=== PATIENT | male | born 1970 | race Caucasian/White ===

== ENCOUNTER 2018-05-02 19:00 | Emergency (ER) | payer BC, OTHER ==
[2018-05-02 19:44] VITALS: BP 115/79
--- NOTE | 2018-05-02 20:30 | ED ---
Skin Complaint - HPI Summary HPI Summary: 48 yr old male with poison samantha. The patient complains of rash for four days. 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 He has the rash on his arms, legs. No rash on trunk. No other complaints. - History of Current Complaint Chief Complaint: UCSkin Time Seen by Provider: 05/02/18 20:16 Stated Complaint: SKIN COMPLAINT Pain Intensity: 8 - Allergy/Home Medications Allergies/Adverse Reactions: Allergies Allergy/AdvReac Type Severity Reaction Status Date / Time No Known Allergies Allergy Verified 05/02/18 19:37 PMH/Surg Hx/FS Hx/Imm Hx Cardiovascular History: Denies: Hx Pacemaker/ICD Sensory History: Denies: Hx Hearing Aid Psychiatric History: Denies: Hx Panic Disorder Infectious Disease History: No Infectious Disease History: Denies: Traveled Outside the [place] in Last 30 Days - Family History Known Family History: Positive: Unknown - Social History Alcohol Use: Weekly Substance Use Type: Reports: None Smoking Status (MU): Former Smoker Have You Smoked in the Last Year: No Review of Systems Constitutional: Negative Positive: Rash All Other Systems Reviewed And Are Negative: Yes Physical Exam Triage Information Reviewed: Yes Vital Signs On Initial Exam: Initial Vitals Temp Pulse Resp BP Pulse Ox 98.6 F 84 18 115/79 97 05/02/18 19:38 05/02/18 19:38 05/02/18 19:38 05/02/18 19:38 05/02/18 19:38 Vital Signs Reviewed: Yes Appearance: Positive: Well-Appearing, No Pain Distress Skin: Positive: Warm, Skin Color Reflects Adequate Perfusion, Other - Patient with wheeping rash on legs and arms with red, lichen appearance. Consitent with poison samantha rash. Head/Face: Positive: Normal Head/Face Inspection Eyes: Positive: EOMI ENT: Positive: Normal ENT inspection Neck: Positive: Nontender Respiratory/Lung Sounds: Positive: Clear to Auscultation, Breath Sounds Present Cardiovascular: Positive: RRR. Negative: Murmur Abdomen Description: Negative: Distended Musculoskeletal: Positive: Strength/ROM Intact Neurological: Positive: Alert, Oriented to Person Place, Time Psychiatric: Positive: Normal Diagnostics - Vital Signs Vital Signs Temp Pulse Resp BP Pulse Ox 05/02/18 19:38 98.6 F 84 18 115/79 97 - Laboratory Lab Statement: Any lab studies that have been ordered have been reviewed, and results considered in the medical decision making process. Course/Dx - Course Course Of Treatment: 48 yr old with poison samantha rash. Plan Dc home on medrol dose ruthie - Diagnoses Provider Diagnoses: Poison samantha dermatitis Discharge - Sign-Out/Discharge Documenting (check all that apply): Patient Departure - Discharge Plan Condition: Good Disposition: HOME Prescriptions: methylPREDNISolone [Medrol Dosepak 4 MG*] 4 mg PO .SEE RUTHIE INSTRUCTION #1 ruthie Patient Education Materials: Poison Samantha (ED) Referrals: Adolph Hudson MD [Primary Care Provider] - - Billing Disposition and Condition Condition: GOOD Disposition: Home
== END 2018-05-02 20:46 | disposition home or self-care (01) ==
LOC: UCCORT 19:00
DX: L23.7 Allergic contact dermatitis due to plants, except food (principal)
CPT/HCPCS: 99212; G0463